=== PATIENT | female | born 1965 | race Caucasian/White ===

== ENCOUNTER 2022-05-25 18:46 | Emergency (ER) | payer OTHER, SELFPAY ==
[2022-05-25 18:57] VITALS: BP 150/73; PULSE 75; RESP 16; TEMP 36.5; O2SAT 97
--- NOTE | 2022-05-25 19:05 | XRR_ITS ---
PROCEDURE INFORMATION: Exam: XR Lumbosacral Spine Exam date and time: 05/25/2022 7:11 PM Age: 56 years old Clinical indication: Low back pain; Additional info: Lift injury TECHNIQUE: Imaging protocol: Radiologic exam of the lumbosacral spine. Views: 2 or 3 views. COMPARISON: CT kidney stone [id number] 10/14/2018 9:12 PM FINDINGS: Bones/joints: Normal. No acute fracture. Normal alignment. Soft tissues: Unremarkable. XR/XR lumbar spine 2-3V* [id number] IMPRESSION: No acute findings.
--- NOTE | 2022-05-25 19:05 | W.ED.BACK ---
HPI - Back Pain/Injury General: Chief Complaint: Back Pain/Injury Stated Complaint: WC Back Pain Time Seen by Provider: 05/25/22 19:04 History of Present Illness: 56-year-old female comes in today with complaints of low back pain. 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 Patient denies any loss of bowel or bladder control. Patient reports history of sciatica. Patient is a chronic smoker. Patient also has a history of tremors and restless legs. Patient appears nontoxic. Patient appears in moderate to severe pain. Associated symptoms: Deny nausea or vomiting Review of Systems General: Reports: 10 or more systems reviewed and unremarkable except in HPI and below Card: Denies: chest pain Resp: Denies: dyspnea GI: Denies: nausea or vomiting Musc: Reports: back pain Skin/Breast: Denies: rash PFSH ED PFSH: Social History Smoking and tobacco status: current every day smoker Alcohol intake: never Physical Exam Const: COMMON NORMALS: alert HENMT: COMMON NORMALS: normocephalic HEAD & SCALP: normocephalic Neck/C-Spine: COMMON NORMALS: no meningeal signs Resp: COMMON NORMALS: normal respiratory effort Cardio: COMMON NORMALS: regular rate and regular rhythm RATE: regular rate RHYTHM: regular rhythm Back/Pelvis: THORACIC SPINE/UPPER BACK: No thoracic spinal tenderness and No paraspinal muscle tenderness LUMBAR SPINE/LOWER BACK: Yes lumbar spinal tenderness Lumbar spinal tenderness location: L5 and Yes paraspinal muscle tenderness Lumbar paraspinal muscle tenderness: bilateral Extremity: COMMON NORMALS: normal to inspection and full ROM Neuro: SENSORIUM/ORIENTATION: Yes alert MENINGEAL SIGNS: Yes no meningeal signs Skin: COMMON NORMALS: turgor normal GENERAL SKIN EXAM: turgor normal Course Vital Signs: Vital signs: Vital Signs Temperature 97.7 F 05/25/22 18:57 Pulse Rate 81 05/25/22 19:54 Respiratory Rate 17 05/25/22 19:54 Blood Pressure 150/73 05/25/22 18:57 Pulse Oximetry 94 05/25/22 19:54 Oxygen Delivery Me thod 05/25/22 18:57 MDM - Back Pain/Injury Medical Decision Making 56-year-old female comes in today with complaints of low back strain. 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 Patient has significant pain and discomfort. On exam patient has some palpable tenderness in the L4-L5 region of her spine. Patient also has paraspinous muscle tenderness in the same area. Leg lift test is negative. No signs of cauda equina syndrome. Differential diagnosis includes but not limited to intervertebral disc disease, facet arthritis, lumbar strain. X-ray of the back noted no acute injuries and some mild degenerative changes. Reviewed exam with patient with recommendations for treatment and follow-up. Patient reported understanding agreed to plan. Discharge Plan Discharge Patient Disposition: Home Clinical Impression: Strain of lumbar region Qualifiers: Encounter type: initial encounter Qualified Code(s): S39.012A - Strain of muscle, fascia and tendon of lower back, initial encounter Condition: Stable Prescriptions: New hydrocodone-acetaminophen 5-325 mg tablet 1 tab PO Q8H PRN (Reason: pain (scale score 7-10)) Qty: 10 0RF diclofenac sodium 75 mg tablet,delayed release (DR/EC) 75 mg PO BID Qty: 20 0RF No Action pramipexole 0.125 mg tablet 0.125 mg PO DAILY cetirizine [Allergy Relief (cetirizine)] 10 mg tablet 10 mg PO DAILY PRN fluoxetine 20 mg capsule 20 mg PO DAILY atorvastatin 40 mg tablet 40 mg PO DAILY primidone 250 mg tablet 250 mg PO TID lisinopril 5 mg tablet 5 mg PO DAILY albuterol sulfate 90 mcg/actuation HFA aerosol inhaler 2 puff inhalation Q6H PRN cyclobenzaprine 5 mg tablet 5 mg PO TID PRN omeprazole 20 mg capsule,delayed release(DR/EC) 20 mg PO DAILY hyoscyamine sulfate 0.125 mg tablet 0.125 mg PO QID ibuprofen 600 mg tablet 600 mg PO Q8H PRN (Reason: pain) Qty: 30 0RF Discharge Orders: Discharge ED (Routine); Ordered 05/25/22 Ordered By: Christian Scott Referrals: Nasir La DO [Primary Care Provider] - Discharge Diet: Usual diet Discharge Activity: Increase activity as tolerated Patient Instructions: Low Back Strain (ED) Activity Restrictions/Additional Instructions: Maintain normal activity as tolerated. Use diclofenac 75 mg 1 tablet 2 times daily routinely to control pain and inflammation. Use acetaminophen for further pain relief. Do not use naproxen or ibuprofen with diclofenac. Use hydrocodone for severe pain. You may continue cyclobenzaprine for muscle spasms and back pain. Drink plenty of water with medication. Follow-up with primary care or Workmen's Compensation provider for further evaluation and treatment. Return to ED for new concerns. Stand Alone Forms: Work/School Release Coding Level of Care Code ED Bailing Machine Operator for Maite Lang
[2022-05-25] MEDS: HYDROcodone-acetaminophen 5-325 mg Tablet 1 TAB PO (19:41)
[2022-05-25] MEDS: ketorolac 30 mg/mL INJ IM (19:41)
[2022-05-25 19:54] VITALS: PULSE 81; RESP 17; O2SAT 94
== END 2022-05-25 19:56 | disposition home or self-care (01) ==
PROVIDERS: Emergency Provider Nurse Practitioner Family; PCP Family Medicine
DX: S39.012A Strain of muscle, fascia and tendon of lower back, initial encounter (principal); F17.210 Nicotine dependence, cigarettes, uncomplicated; Y93.F2 Activity, caregiving, lifting; X50.0XXA Overexertion from strenuous movement or load, initial encounter
CPT/HCPCS: 72100; 96372; 99284; J1885